=== PATIENT | male | born 1970 | race Caucasian/White ===

== ENCOUNTER 2016-07-19 04:03 | Emergency (ER) | payer OTHER ==
[~2016-07-19] VITALS: Ht 190.5 cm; Wt 97.5 kg
[2016-07-19 04:05] VITALS: BP 132/91
[2016-07-19] MEDS ORDERED: DIPHTH,PERTUSS(ACELL),TET TOX 0.5 ML DISP.SYRIN. VAX IM ONE (05:00)
[2016-07-19] MEDS ORDERED: LIDOCAINE 1% / SOD BICARB 8.4% 20 ML VIAL. IJ ONE (05:00)
[2016-07-19] MEDS ORDERED: HYDR-2666 PO (05:14)
--- NOTE | 2016-07-19 05:14 | PHYS DOC ---
Past Medical History Past Medical History: No Pertinent History Past Surgical History: Other Additional Past Surgical Histo: BACK SURGERY Alcohol Use: None Drug Use: None Adult General Chief Complaint Chief Complaint: FINGER INJURY HPI HPI 45-year-old male presenting to the emergency department today after smashing his left hand third phalanx between an oxygen tank and a shelf. He sustained a laceration to the distal portion of his finger. He denies any other injuries. He has pain in his finger that is sharp nonradiating mild and without alleviating factors. Review of systems is negative for chest pain shortness of breath nausea vomiting. All other review of systems is negative unless otherwise noted in history of present illness. Review of Systems Review of Systems SEE ABOVE. Current Medications Current Medications Current Medications Medications (Trade) Dose Ordered Sig/Leonela Start Time Stop Time Status Last Admin Dose Admin Diphtheria/ Tetanus/Acell Pertussis (Boostrix) 0.5 ml ONCE ONCE 07/19/16 05:00 07/19/16 05:01 DC 07/19/16 04:46 0.5 ML Lidocaine/Sodium Bicarbonate (Buffered Lidocaine 1%) 20 ml 1X ONCE 07/19/16 05:00 07/19/16 05:01 DC 07/19/16 04:43 20 ML Allergies Allergies Allergies Coded Allergies Type Severity Reaction Last Updated Verified No Known Drug Allergies 07/19/16 No Physical Exam Physical Exam Constitutional: Well developed, well nourished, no acute distress, non-toxic appearance. [] HENT: Normocephalic, atraumatic, bilateral external ears normal, oropharynx moist, no oral exudates, nose normal. Eyes: PERRLA, EOMI, conjunctiva normal, no discharge. [] Neck: Normal range of motion, no tenderness, supple, no stridor. Cardiovascular:Heart rate regular rhythm, no murmur [] Lungs & Thorax: Bilateral breath sounds clear to auscultation [] Abdomen: Bowel sounds normal, soft, no tenderness, no masses, no pulsatile masses. Skin: Warm, dry, no erythema, no rash. [] Back: No tenderness, no CVA tenderness. [] Extremities: The patient's left upper extremity is warm and well perfused with a palpable pulse. The patient has a 2.5 cm laceration on the distal most portion of his third phalanx. 2 second cap refill intact. Normal sensation reported. Otherwise nontender wrist and elbow proximally. No other injuries present. Neurologic: Alert and oriented X 3, normal motor function, normal sensory function, no focal deficits noted. [] Psychologic: Affect normal, judgement normal, mood normal. [] Current Patient Data Vital Signs Vital Signs Date Time Temp Pulse Resp B/P Pulse Ox O2 Delivery O2 Flow Rate FiO2 07/19/16 04:05 97.9 71 18 97 Room Air 97.9 EKG EKG [] Radiology/Procedures Radiology/Procedures [] Course & Med Decision Making Course & Med Decision Making Pertinent Labs and Imaging studies reviewed. (See chart for details) [] 45-year-old gentleman sustaining a laceration to his left third distal phalanx. Vital signs unremarkable. Laceration repaired after washout. Lidocaine used for anesthesia. X-ray obtained. Patient subsequently discharged home for suture removal in the next 4-5 days. Patients finger placed in splint. Dragon Disclaimer Dragon Disclaimer This electronic medical record was generated, in whole or in part, using a voice recognition dictation system. Departure Departure Impression: Primary Impression: Finger laceration Disposition: 01 HOME, SELF-CARE Condition: STABLE Referrals: NO PCP (PCP) IZZY HOUSE MD Patient Instructions: Fingertip Laceration Additional Instructions: Thank you for allowing us to participate in your care today. Followup with your primary care physician in 3 days if your symptoms do not improve. If you do not have a primary care provider you can ask for a list of our primary care providers. Return to the emergency department you have any new or concerning findings. This should be evaluated by the primary care physician and any necessary consulting services for continued management within a few days after discharge. Return to emergency room if you have any new or concerning symptoms including but not limited to fever, chills, nausea, vomiting, intractable pain, any new rashes, chest pain, shortness of air, uncontrolled bleeding, difficulty breathing, and/or vision loss. You may have been prescribed medication that can change in your level of thinking and ability to operate machinery. These medications include hydrocodone and Ativan. Also, Benadryl has been known to do this as well. Be sure to check with your pharmacist and ask if the medications you've prescribed can affect your level of consciousness. I recommend not operating heavy machinery or driving while on medication such as these. Scripts Hydrocodone Bit/Acetaminophen (Hydrocodone-Apap 5-325 )1 Each Tablet1 Tab PO PRN Q6HRS PRN PAIN #15 TAB Be careful as this medication may cause you to be drowsy or tired. Do not drive on this medication. Prov:ISABELLA KRUEGER MD 07/19/16 Laceration Repair Lac Repair Indication: Fingertip laceration Procedure: The patient was placed in the appropriate position and anesthesia was used in a finger block formation of the third phalanx. 1% buffered lidocaine used.. The area was then cleansed and washed out with saline. The laceration was closed using a simple interrupted technique. The wound area was then dressed with nonadherent dressing. Total repaired wound length: 2.5cm. Other Items: The patient tolerated the procedure well. Complications: none. ISABELLA KRUEGER MD Jul 19, 2016 05:14
--- NOTE | 2016-07-19 07:44 | RAD ---
Indication: Smashed left finger. Technique: 3 views of the left third digit are submitted for review. This includes an AP view of the hand. No comparison is available. Findings: There is soft tissue swelling involving the third digit. No fracture or dislocation is identified. Incidentally, there is a tiny foreign body in the soft tissues of the second digit along the proximal phalanx apparent on 2 of the 3 views. Impression: Soft tissue swelling.
== END 2016-07-19 06:01 | disposition home or self-care (01) ==
LOC: ER 04:03
DX: S61.213A Laceration without foreign body of left middle finger without damage to nail, initial encounter (principal); W22.8XXA Striking against or struck by other objects, initial encounter; Y93.89 Activity, other specified; Y92.89 Other specified places as the place of occurrence of the external cause; Y99.8 Other external cause status
CPT/HCPCS: 12001; 73140; 90471; 90715; 99284-25